=== PATIENT | female | born 1990 | race Caucasian/White ===

== ENCOUNTER 2017-06-14 18:31 | Emergency (ER) | payer OTHER, SELFPAY ==
--- NOTE | 2017-06-14 20:05 | RAD REPORT ---
EXAM DESCRIPTION: RAD - Knee Left 3 View - 06/14/2017 7:48 pm CLINICAL HISTORY: Left knee pain COMPARISON: None. FINDINGS: No bone or joint abnormality detected.
--- NOTE | 2017-06-14 20:30 | RAD REPORT ---
EXAM DESCRIPTION: RAD - Foot Left 3 View - 06/14/2017 8:04 pm CLINICAL HISTORY: Trauma, pain COMPARISON: 08/16/2011 FINDINGS: No fracture or dislocation seen. Small plantar calcaneal spur is present.
--- NOTE | 2017-06-14 20:40 | ER ---
Nurse's Notes [facility] Name: Armida Estevez Age: 27 yrs Sex: Female : 1990 Arrival Date: 06/14/2017 Time: 18:35 Bed 24 Private MD: Diagnosis: Pain in left leg Presentation: 06/14 18:46 Presenting complaint: Patient states: Slipped on wet stairs this AM. Abrasions to top aj of left foot and knee. Transition of care: patient was not received from another setting of care. Onset of symptoms was June 14, 2017. Initial Sepsis Screen: Does the patient meet any 2 criteria? No. Patient's initial sepsis screen is negative. Does the patient have a suspected source of infection? No. Patient's initial sepsis screen is negative. Care prior to arrival: None. 18:46 Method Of Arrival: Ambulatory aj 18:46 Acuity: NATHALIE 4 aj Triage Assessment: 18:48 General: Appears in no apparent distress. comfortable, Behavior is calm, cooperative, aj appropriate for age. Pain: Complains of pain in left knee, anterior aspect of left ankle and dorsum of left foot. Neuro: Level of Consciousness is awake, alert, obeys commands, Oriented to person, place, time, situation, Appropriate for age. Respiratory: Airway is patent Respiratory effort is even, unlabored, Respiratory pattern is regular, symmetrical. Derm: Skin is intact, is healthy with good turgor, Skin is pink, warm \T\ dry. normal. Injury Description: Abrasion sustained to left knee, anterior aspect of left ankle and dorsum of left foot. 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 - Social history:: Smoking status: Patient/guardian denies using tobacco, Patient/guardian denies using alcohol, street drugs, The patient lives with family. - Family history:: not pertinent. Screenin:28 Abuse screen: Denies threats or abuse. Denies injuries from another. Nutritional bs1 screening: No deficits noted. Tuberculosis screening: No symptoms or risk factors identified. Fall Risk None identified. Assessment: 19:24 General: Appears in no apparent distress. uncomfortable, Behavior is calm, cooperative, bs1 appropriate for age. Pain: Complains of pain in left leg and dorsum of left foot and anterior aspect of left ankle and left knee. Neuro: Level of Consciousness is awake, alert, obeys commands, Oriented to person, place, time, situation, Appropriate for age. Cardiovascular: Denies chest pain, palpitations, shortness of breath, Heart tones S1 S2 present Capillary refill < 3 seconds Patient's skin is warm and dry. Respiratory: Airway is patent Trachea midline Respiratory effort is even, unlabored, Respiratory pattern is regular, symmetrical, Breath sounds are clear bilaterally. GI: No deficits noted. No signs and/or symptoms were reported involving the gastrointestinal system. : No deficits noted. No signs and/or symptoms were reported regarding the genitourinary system. EENT: No deficits noted. No signs and/or symptoms were reported regarding the EENT system. Derm: Skin abrasion noted to left knee/top of left ankle. Musculoskeletal: Circulation, motion, and sensation intact. Capillary refill < 3 seconds, Range of motion: limited in left leg Swelling present in dorsum of left foot and anterior aspect of left ankle and left knee. 20:45 Reassessment: Patient appears in no apparent distress at this time. Patient and/or bs1 family updated on plan of care and expected duration. Pain level reassessed. Patient is alert, oriented x 3, equal unlabored respirations, skin warm/dry/pink. Vital Signs: 18:48 BP 151 / 103; Pulse 95; Resp 17; Temp 98.6; Pulse Ox 98% on R/A; Weight 102.06 kg; aj Height 5 ft. 6 in. (167.64 cm); 20:45 BP 142 / 92; Pulse 92; Resp 16; Temp 97.9(O); Pulse Ox 100% on R/A; Pain 5/10; bs1 18:48 Body Mass Index 36.32 (102.06 kg, 167.64 cm) aj ED Course: 18:35 Patient arrived in ED. sb2 18:47 Triage completed. aj 18:48 Arm band placed on right wrist. Patient placed in waiting room, Patient notified of aj wait time. X-ray ordered. 19:11 Jess Cameron MD is Attending Physician. ma2 19:24 Luiza Leonard, RN is Primary Nurse. bs1 19:28 Patient has correct armband on for positive identification. Bed in low position. Call bs1 light in reach. Side rails up X 1. Pulse ox on. NIBP on. 19:43 X-ray completed. Portable x-ray completed in exam room. Patient tolerated procedure la2 well. 19:48 XRAY Knee LEFT 3 view In Process Unspecified. EDMS 20:05 Foot Left 3 View XRAY In Process Unspecified. EDMS 20:51 No provider procedures requiring assistance completed. Patient did not have IV access bs1 during this emergency room visit. Administered Medications: No medications were administered Outcome: 20:39 Discharge ordered by . ma2 20:51 Discharged to home ambulatory. bs1 20:51 Condition: stable 20:51 Discharge instructions given to patient, Instructed on discharge instructions, follow up and referral plans. medication usage, Demonstrated understanding of instructions, follow-up care, medications, wound care, Prescriptions given X 2. 20:53 Patient left the ED. bs1 Signatures: Dispatcher [employer] EDDoris Harding, RN RN Priscilla Leyva la2 Luiza Leonard, LEE RN bs1 Jess Cameron MD MD ma2 Rea Briscoe 2
--- NOTE | 2017-06-14 20:40 | EDPHYS ---
Physician Documentation [facility] Name: Armida Estevez Age: 27 yrs Sex: Female : 1990 Arrival Date: 06/14/2017 Time: 18:35 Bed 24 Private MD: ED Physician Jess Cameron HPI: 06/14 19:45 This 27 yrs old Female presents to ER via Ambulatory with complaints of Leg ma2 Pain. 19:45 The patient presents with an abrasion, an injury. The complaints affect the left knee ma2 and dorsum of left foot. Context[place] Onset: The symptoms/episode began/occurred suddenly, 12 hour(s) ago. Associated signs and symptoms: Pertinent positives: Pertinent negatives calf tenderness, fever, nausea, rash, swelling, vomiting, warmth. Severity of symptoms: At their worst the symptoms were mild, moderate. The patient has not experienced similar symptoms in the past. 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 - Social history:: Smoking status: Patient/guardian denies using tobacco, Patient/guardian denies using alcohol, street drugs, The patient lives with family. - Family history:: not pertinent. ROS: 19:45 MS/extremity: Positive for abrasion, pain. ma2 19:45 All other systems are negative. 20:40 Constitutional: Negative for fever, chills, and weight loss. ma2 Exam: 19:45 Constitutional: This is a well developed, well nourished patient who is awake, alert, ma2 and in no acute distress. Head/Face: Normocephalic, atraumatic. Cardiovascular: Regular rate and rhythm with a normal S1 and S2. No gallops, murmurs, or rubs. Normal PMI, no JVD. No pulse deficits. Respiratory: Lungs have equal breath sounds bilaterally, clear to auscultation and percussion. No rales, rhonchi or wheezes noted. No increased work of breathing, no retractions or nasal flaring. Abdomen/GI: Soft, non-tender, with normal bowel sounds. No distension or tympany. No guarding or rebound. No evidence of tenderness throughout. MS/ Extremity: Pulses equal, no cyanosis. Neurovascular intact. Full, normal range of motion. Neuro: Awake and alert, GCS 15, oriented to person, place, time, and situation. Cranial nerves II-XII grossly intact. Motor strength 5/5 in all extremities. Sensory grossly intact. Cerebellar exam normal. Normal gait. 19:45 Musculoskeletal/extremity: ROM: limited active range of motion, left knee and foot, Circulation is intact in all extremities. Sensation intact. Vital Signs: 18:48 BP 151 / 103; Pulse 95; Resp 17; Temp 98.6; Pulse Ox 98% on R/A; Weight 102.06 kg; aj Height 5 ft. 6 in. (167.64 cm); 20:45 BP 142 / 92; Pulse 92; Resp 16; Temp 97.9(O); Pulse Ox 100% on R/A; Pain 5/10; bs1 18:48 Body Mass Index 36.32 (102.06 kg, 167.64 cm) aj MDM: 19:11 Patient medically screened. ma2 19:45 Differential diagnosis: open fracture, contusion, abrasion, TDAP UTD. ma2 20:39 Data reviewed: vital signs, nurses notes, radiologic studies. Counseling: I had a ma2 detailed discussion with the patient and/or guardian regarding: the historical points, exam findings, and any diagnostic results supporting the discharge/admit diagnosis, the presence of at least one elevated blood pressure reading (>120/80) during this emergency department visit, the need for outpatient follow up. 06/14 18:51 Order name: XRAY Knee LEFT 3 view; Complete Time: 20:38 06/14 19:31 Order name: Foot Left 3 View XRAY; Complete Time: 20:38 ma2 Administered Medications: No medications were administered Disposition: 06/14/17 20:39 Discharged to Home. Impression: Pain in left leg. - Condition is Stable. - Discharge Instructions: Musculoskeletal Pain. - Prescriptions for Tylenol- Codeine #3 300-30 mg Oral Tablet - take 2 tablet by ORAL route every 6 hours As needed; 30 tablet. Bacitracin 500 unit/gram Ophthalmic Ointment - instill 0.5 inch by OPHTHALMIC route every 6 hours; 3.5 tube. - Medication Reconciliation Form, Thank You Letter, Antibiotic Education, Prescription Opioid Use form. - Follow up: Private Physician; When: Tomorrow; Reason: Continuance of care. - Problem is new. - Symptoms are unchanged. Signatures: Dispatcher [employer] [facility] Doris Franklin, RN RN Luiza Ba RN RN bs1 Jess Cameron MD MD ma2 Corrections: (The following items were deleted from the chart) 19:44 18:51 Ankle Left 3 View+RAD.RAD.BRZ ordered. [facility] 20:39 20:39 06/14/2017 20:39 Discharged to Home. Impression: Pain in left leg. Condition is ma2 Stable. Forms are Medication Reconciliation Form, Thank You Letter, Antibiotic Education, Prescription Opioid Use. Follow up: Private Physician; When: Tomorrow; Reason: Continuance of care. [facility] 20:53 20:39 06/14/2017 20:39 Discharged to Home. Impression: Pain in left leg. Condition is bs1 Stable. Forms are Medication Reconciliation Form, Thank You Letter, Antibiotic Education, Prescription Opioid Use. Follow up: Private Physician; When: Tomorrow; Reason: Continuance of care. Problem is new. Symptoms are unchanged. ma2
[2017-06-14 20:58] VITALS: BP 142/92; TEMP 97.9; O2SAT 100
== END 2017-06-14 20:53 | disposition home or self-care (01) ==
LOC: ER 18:31
DX: M79.605 Pain in left leg (principal); X58.XXXA Exposure to other specified factors, initial encounter; Y93.9 Activity, unspecified; Y92.832 Beach as the place of occurrence of the external cause
CPT/HCPCS: 99283